=== PATIENT | female | born 1940 | race African-American/Black ===

== ENCOUNTER 2024-08-24 13:45 | Emergency (ER) | payer OTHER ==
[~2024-08-24] VITALS: Ht 165.1 cm; Wt 100.0 kg
[2024-08-24 13:49] VITALS: O2SAT 99
[2024-08-24] MEDS ORDERED: ASPI-1497 MT (13:58)
[2024-08-24 15:21] LABS: BASOPHILS % 2.6 % (0.0-2.0); EOSINOPHILS % 2.8 % (0.0-5.0); HEMATOCRIT. 21.4 % (36.0-48.0); MEAN CORPUSCULAR HEMOGLOBIN 21.6 pg (28.0-32.0); MEAN CORPUSCULAR HGB CONC 29.1 g/dL (31.0-37.0); MEAN CORPUSCULAR VOLUME 74.4 fL (81.0-99.0); MEAN PLATELET VOLUME 8.1 fl (7.4-10.4); MONOCYTES % 5.9 % (2.0-8.0); NEUTROPHILS % 64.7 % (40.0-76.0); PLATELET 409 x1000/uL (130-400); RED BLOOD CELL COUNT 2.87 mill/uL (4.2-5.4); RED CELL DISTRIBUTION WIDTH 24.5 % (11.6-14.6); WHITE BLOOD COUNT 5.5 x1000/uL (4.5-11.0)
[2024-08-24 15:24] LABS: ADD RBC MORPHOLOGY YES; DIFFERENTIAL COMMENT 1; HEMOGLOBIN. 6.2 g/dL (12.0-16.0)
[2024-08-24 15:29] LABS: CHLORIDE 107 mEq/L (98-107); POTASSIUM 3.5 mEq/L (3.5-5.1); SODIUM 145 mEq/L (136-145)
[2024-08-24 15:30] LABS: CALCIUM 9.6 mg/dL (8.7-10.4); CARBON DIOXIDE 26 mEq/L (21-32)
[2024-08-24 15:35] LABS: GLUCOSE 103 mg/dL (70-105); UREA NITROGEN BLOOD 13 mg/dL (9-23)
[2024-08-24 15:36] LABS: INR 1.1; PARTIAL THROMBOPLASTIN TIME < 21.0 sec (23.4-31.0); PROTHROMBIN TIME 11.8 sec (9.6-11.0)
[2024-08-24 15:37] LABS: ALANINE AMINOTRANSFERASE 9 IU/L (10-49); ALBUMIN 4.2 g/dL (3.2-4.8); ASPARTATE AMINOTRANSFERASE 30 IU/L (<34); BILIRUBIN DIRECT < 0.1 mg/dL (<=3.0); BILIRUBIN TOTAL 0.4 mg/dL (0.1-1.0); PROTEIN TOTAL 6.5 g/dL (6.0-8.3); TROPONIN I HIGH SENSITIVITY < 4 ng/L (3.0-34)
[2024-08-24 15:51] LABS: ANISOCYTOSIS 2+; HYPOCHROMASIA 2+; MICROCYTOSIS 2+; PLATELET ESTIMATE SLIGHTLY INCREASED
[2024-08-24 15:53] LABS: GIANT PLATELETS FEW
[2024-08-24 20:00] LABS: CLARITY URINE CLEAR (CLEAR); COLOR URINE YELLOW (YELLOW); GLUCOSE URINE NEGATIVE (NEGATIVE); KETONES URINE NEGATIVE (NEGATIVE); LEUKOCYTE ESTERASE URINE NEGATIVE (NEGATIVE); NITRITE URINE NEGATIVE (NEGATIVE); OCCULT BLOOD URINE NEGATIVE (NEGATIVE); PROTEIN URINE NEGATIVE (NEGATIVE); SPECIFIC GRAVITY URINE 1.007 (1.005-1.030); UROBILINOGEN URINE 0.2 E.U./dL (0.2-1.0)
[2024-08-24] MEDS: LABETALOL 5MG/ML 4ML INJ IV ONE (21:53)
[2024-08-24 22:01] VITALS: BP 136/90; PULSE 69; RESP 16; TEMP 36.6; O2SAT 98
== END 2024-08-24 22:10 | disposition short-term general hospital (02) ==
LOC: ER 13:45 → EDBEDREQ 14:17 → CANBEDREQ 16:41 → ER 22:10
DX: R55 Syncope and collapse (principal); D64.9 Anemia, unspecified; I10 Essential (primary) hypertension; Z86.73 Personal history of transient ischemic attack (TIA), and cerebral infarction without residual deficits; Z98.890 Other specified postprocedural states; Z79.899 Other long term (current) drug therapy
CPT/HCPCS: 99291; 96374; 70450; 80076; 80048; 81003; 83880; 85025; 85610; 85730; 86850; 86900; 86901; 86920; 84484; 36415; 71045; 93005; J3490; A4606; P9016